=== PATIENT | female | born 1990 | race Caucasian/White ===

== ENCOUNTER 2018-06-19 13:25 | Outpatient (CLI) | payer MEDICAID | END 2018-06-19 15:55 | disposition home or self-care (01) | LOC: OBT 13:25 → L-D 13:27 → OBT 15:55 | DX: O36.5930 Maternal care for other known or suspected poor fetal growth, third trimester, not applicable or unspecified (principal); Z3A.36 36 weeks gestation of pregnancy | CPT/HCPCS: 76815; 76818 ==

== ENCOUNTER 2018-07-04 08:26 | Inpatient (IN) | payer MEDICAID ==
[2018-07-04] MEDS ORDERED: OXYTOCIN 30 UNITS/LR 500 ML IV ×2 (11:30)
[2018-07-04] MEDS ORDERED: LIDOCAINE 1% (MPF) 30 ML INJ INJ (11:30)
[2018-07-04] MEDS ORDERED: IBUPROFEN 600 MG TAB PO (11:30)
[2018-07-04] MEDS ORDERED: BUTORPHANOL 2 MG INJ IV (11:30)
[2018-07-04] MEDS ORDERED: CARBOPROST 250 MCG INJ IM (11:30)
[2018-07-04 11:38] LABS: ADD MAN DIFF? NO
[2018-07-04 11:41] LABS: WHITE BLOOD COUNT 10.5 10^3/ul (4.8-10.8)
[2018-07-04 11:41] LABS: BASOPHILS % 0.4 % (0.0-2.0); EOSINOPHILS # 0.3 10^3/ul (0.0-0.5); EOSINOPHILS % 2.6 % (0.0-7.0); HEMATOCRIT 39.6 % (37.0-47.0); HEMOGLOBIN 13.5 g/dl (12.0-16.0); LYMPHOCYTES # 1.9 10^3/ul (0.8-2.9); LYMPHOCYTES % 17.7 % (15.0-51.0); MEAN CORPUSCULAR HGB CONC 34.1 g/dl (32.0-37.0); MEAN CORPUSCULAR VOLUME 90.8 fl (82.0-101.0); MEAN PLATELET VOLUME 10.8 fl (7.4-10.4); MONOCYTE # 0.8 10^3/ul (0.3-0.9); MONOCYTES % 7.1 % (0.0-11.0); NEUTROPHIL # 7.6 10^3/ul (1.6-7.5); NEUTROPHILS % 71.7 % (39.0-77.0); PLATELET COUNT 189 10^3/UL (140-415); RED BLOOD COUNT 4.36 10^6/ul (4.20-5.40); RED CELL DISTRIBUTION WIDTH 12.5 % (11.5-14.5)
[2018-07-04] MEDS: LACTATED RINGER'S 1,000 ML IV ×4 (11:43→23:43)
[2018-07-04 12:02] LABS: INR 0.93; PROTIME 12.6 Sec (11.9-14.9)
[2018-07-04 12:03] LABS: PARTIAL THROMBOPLASTIN TIME 26.1 Sec (23.0-35.0)
[2018-07-04] MEDS: MISOPROSTOL 50 MCG CAPSULE PO ×2 (12:04→16:01)
[2018-07-04 16:12] LABS: RAPID PLASMA REAGIN NONREACTIVE (NR)
[2018-07-04] MEDS ORDERED: HYDROmorphONE 0.5 MG/0.5 ML SYG IV ×2 (20:30)
[2018-07-04] MEDS ORDERED: NALOXONE (0.4 MG/ML) INJ IV (20:30)
[2018-07-04] MEDS ORDERED: KETOROLAC 30 MG INJ IV (20:30)
[2018-07-04] MEDS ORDERED: ZOLPIDEM 5 MG TAB PO (20:30)
[2018-07-04] MEDS ORDERED: DIPHENHYDRAMINE 50 MG INJ IV (20:30)
[2018-07-04] MEDS ORDERED: ONDANSETRON 4 MG INJ IV (20:30)
[2018-07-05] MEDS: FENTAnyl 2MCG/ML-ROPIV 0.2% 100 ML BAG EPI ×2 (04:28→09:50)
[2018-07-05] MEDS: OXYTOCIN 30 UNITS/LR 500 ML IV ×2 (05:41→15:56)
[2018-07-05] MEDS ORDERED: DEXTROSE 5%-LR 1,000 ML IV (06:00)
[2018-07-05] MEDS: LACTATED RINGER'S 1,000 ML IV (07:17)
[2018-07-05] MEDS: MISOPROSTOL 200 MCG TAB PR (15:21)
[2018-07-05] MEDS: METHYLERGONOVINE 0.2 MG INJ IM (15:21)
[2018-07-05] MEDS: LACTATED RINGER'S 1,000 ML IV* ×2 (15:24→20:26)
[2018-07-05] MEDS ORDERED: ONDANSETRON 4 MG TAB PO (15:30)
[2018-07-05] MEDS ORDERED: DIPHENHYDRAMINE 25 MG CAP PO (15:30)
[2018-07-05] MEDS ORDERED: MISOPROSTOL 200 MCG TAB PR (15:30)
[2018-07-05] MEDS ORDERED: SENNA/DOCUSATE NA (8.6MG/50MG) TAB PO (15:30)
[2018-07-05] MEDS ORDERED: DIBUCAINE 1% 30 GM OINT TOP (15:30)
[2018-07-05] MEDS ORDERED: NA PHOSPHATE/BIPHOS 133 ML ENEMA PR (15:30)
[2018-07-05] MEDS ORDERED: DIPHENHYDRAMINE 50 MG INJ IV (15:30)
[2018-07-05] MEDS ORDERED: MAGNESIUM HYDROXIDE 30ML CUP PO (15:30)
[2018-07-05] MEDS ORDERED: CARBOPROST 250 MCG INJ IM (15:30)
[2018-07-05] MEDS ORDERED: OXYTOCIN 30 UNITS/LR 500 ML IV (15:30)
[2018-07-05] MEDS ORDERED: ONDANSETRON 4 MG INJ IV (15:30)
[2018-07-05] MEDS ORDERED: HYDROCODONE/APAP (5/325) TAB PO ×2 (15:30)
[2018-07-05] MEDS: IBUPROFEN 600 MG TAB PO ×2 (15:49→23:50)
[2018-07-05] MEDS: CEFAZOLIN 2 GM/50 ML (PMX) 50 ML IVPB (15:56)
[2018-07-05] MEDS: BENZOCAINE 20% 56 ML SPRAY TOP (20:25)
[2018-07-05] MEDS: WITCH HAZEL/GLYCERIN PAD PR (20:25)
[2018-07-05] MEDS: SENNA/DOCUSATE NA (8.6MG/50MG) TAB PO (20:25)
[2018-07-05] MEDS: LANOLIN HPA 1 PKT TOP (20:25)
[2018-07-06] MEDS: LACTATED RINGER'S 1,000 ML IV ×3 (03:13→19:13)
[2018-07-06] MEDS: IBUPROFEN 600 MG TAB PO ×4 (05:34→23:32)
[2018-07-06] MEDS: LACTATED RINGER'S 1,000 ML IV* ×3 (07:24→23:24)
[2018-07-06 07:47] LABS: ADD MAN DIFF? NO
[2018-07-06 08:01] LABS: WHITE BLOOD COUNT 15.6 10^3/ul (4.8-10.8)
[2018-07-06 08:01] LABS: BASOPHIL # 0.1 10^3/ul (0.0-0.1); BASOPHILS % 0.4 % (0.0-2.0); EOSINOPHILS # 0.2 10^3/ul (0.0-0.5); EOSINOPHILS % 1.3 % (0.0-7.0); HEMATOCRIT 27.3 % (37.0-47.0); HEMOGLOBIN 9.2 g/dl (12.0-16.0); LYMPHOCYTES # 2.6 10^3/ul (0.8-2.9); LYMPHOCYTES % 16.8 % (15.0-51.0); MEAN CORPUSCULAR HEMOGLOBIN 31.1 pg (29.0-33.0); MEAN CORPUSCULAR HGB CONC 33.7 g/dl (32.0-37.0); MEAN CORPUSCULAR VOLUME 92.2 fl (82.0-101.0); MEAN PLATELET VOLUME 10.6 fl (7.4-10.4); MONOCYTE # 1.3 10^3/ul (0.3-0.9); MONOCYTES % 8.2 % (0.0-11.0); NEUTROPHIL # 11.4 10^3/ul (1.6-7.5); NEUTROPHILS % 72.9 % (39.0-77.0); PLATELET COUNT 144 10^3/UL (140-415); RED BLOOD COUNT 2.96 10^6/ul (4.20-5.40); RED CELL DISTRIBUTION WIDTH 12.9 % (11.5-14.5)
[2018-07-06] MEDS: SENNA/DOCUSATE NA (8.6MG/50MG) TAB PO ×2 (10:05→21:16)
[2018-07-07] MEDS: LACTATED RINGER'S 1,000 ML IV (03:13)
[2018-07-07] MEDS: IBUPROFEN 600 MG TAB PO ×2 (05:38→13:08)
[2018-07-07] MEDS: LACTATED RINGER'S 1,000 ML IV* (07:24)
[2018-07-07] MEDS: DIPHTH/TET/ACEL PERTUSS (ADULT) 0.5 ML VIAL IM* (09:00)
[2018-07-07] MEDS: MEASLES,MUMPS,RUBELLA VACCINE INJ SC* (09:00)
[2018-07-07] MEDS: VARICELLA VACCINE LIVE/PF 1,350 UNIT/0.5 ML ML SC* (09:00)
[2018-07-07] MEDS: SENNA/DOCUSATE NA (8.6MG/50MG) TAB PO (09:26)
[2018-07-07] MEDS: WITCH HAZEL/GLYCERIN PAD PR (14:44)
[2018-07-07] MEDS: BENZOCAINE 20% 56 ML SPRAY TOP (14:44)
== END 2018-07-07 17:17 | disposition home or self-care (01) | DRG 807 ==
LOC: OBT 08:26 → L-D 08:27 → PP1 07-05 17:24 → OBT 10:35 → L-D 11:02
PROVIDERS: Specialist
PROC: 10E0XZZ Delivery of Products of Conception, External Approach (ICD-10-PCS; principal; 2018-07-04)
PROC: 0KQM0ZZ Repair Perineum Muscle, Open Approach (ICD-10-PCS; 2018-07-04)
PROC: 3E033VJ Introduction of Other Hormone into Peripheral Vein, Percutaneous Approach (ICD-10-PCS; 2018-07-04)
DX: O70.1 Second degree perineal laceration during delivery (principal); Z37.0 Single live birth; Z3A.38 38 weeks gestation of pregnancy
CPT/HCPCS: 62319; 76815; 76818; 85025; 85610; 85730; 86592; 86850; 86900; 86901; 90716; 99464